=== PATIENT | male | born 1965 | race Caucasian/White ===

== ENCOUNTER → 2020-10-09 11:52 | Outpatient (BNVA) | payer BC, SELFPAY | PROVIDERS: PCP Family Medicine; Visit Provider Surgery | DX: K40.20 Bilateral inguinal hernia, without obstruction or gangrene, not specified as recurrent (principal); Z20.822 Contact with and (suspected) exposure to COVID-19 | CPT/HCPCS: 87635 ==

== ENCOUNTER 2020-10-15 07:52 | Day surgery (SDC) | payer BC, SELFPAY ==
[2020-10-14 09:40] VITALS: BMI 19.3
[2020-10-15] VITALS (7 sets, daily range): BP systolic 114–146; BP diastolic 84–99; PULSE 70–83; RESP 14–20; TEMP 36.2–36.9; O2SAT 98–100
--- NOTE | 2020-10-15 08:08 | W.PM.OPSUD ---
Surgery/Procedure H&P Update DATE OF PROCEDURE: October 15, 2020 DATE H&P PERFORMED: 10/07/20 H&P UPDATE INFORMATION: I have reviewed H&P completed within last 30 days, I have examined patient prior to procedure and No changes to prior documentation PREOP DIAGNOSIS: Bilateral inguinal herni a PLANNED PROCEDURE: Operation Date: 10/15/20 09:25 Proposed Procedures p Laparoscopic Inguinal Hernia Repair [id number] K40.20(Not Applicable) - Ryan Tracey MD
[2020-10-15] MEDS: sodium chloride 0.9% 1,000 ML 30 ML IV (08:34)
--- NOTE | 2020-10-15 09:16 | ANES.PREANE2 ---
Pre-Anesthetic Assessment Pre-Anesthetic Assessment: Height/Weight: Height 1.83 m Weight 64.864 kg Temp Pulse Resp BP Pulse Ox 98.4 F 70 16 146/90 100 10/15/20 08:05 10/15/20 08:05 10/15/20 08:05 10/15/20 08:05 10/15/20 08:05 Preop Diagnosis: Bilateral inguinal herni a Proposed Procedure: Operation Date: 10/15/20 09:25 Proposed Procedures p Laparoscopic Inguinal Hernia Repair 59936 K40.20(Not Applicable) - Ryan Tracey MD Was Beta [place] taken within 24 hours: N/A Was Clonidine taken within 24 hours: N/A Last intake: Intake Last Liquid Date 10/14/20 Last Liquid Time 20:00 Last Solid Date 10/14/20 Last Solid Time 22:00 Social: Social History: No alcohol and No tobacco Exam: Pre-Anes Outpt Exam: alert, oriented x 3, clear to auscultation bilaterally and regular rate & rhythm Airway: Submandibular: WNL Cervical ROM: WNL MP: 2 Dentition: Full History/ROS: No significant history except as noted Anesthetic Plan: ASA status: 1 Anesthesia: General Risk of > 500 ml blood loss (7ml/kg in children): No Meds/Allergies Current Medications: Current Medications Generic Name Dose Route Start Last Admin Trade Name Freq PRN Reason Stop Dose Admin Sodium Chloride 1,000 mls @ 30 ml s/hr 10/15/20 08:15 10/15/20 08:34 Sodium Chloride 0.9% IV 10/16/20 08:14 30 mls/hr .Q24H MARIN Administration PFSH Anesthesia PFSH: Surgical History (Updated 10/15/20 @ 08:09 by Ryan Tracey MD) S/P bilateral inguinal hernia repair (10/15/20) Social History Smoking and tobacco status: never smoked Data Anesthesia Cardiac Studies: No Data to Display
--- NOTE | 2020-10-15 10:49 | PM.OP ---
Operative Report Date of procedure: October 15, 2020 Pre-op Diagnosis: Bilateral reducible inguinal hernia Procedure Done: Laparoscopic extraperitoneal bilateral reducible direct inguinal hernia repair with Surgimax 3D mesh Pathology: none sent Surgeon: Ryan Tracey Anesthesia: General Condition: stable Disposition: PACU Procedure: The patient was taken to the operating room. After IV antibiotic was administered, the abdomen was prepped and draped in a sterile manner. Using a 15 blade, a 1.0 cm transverse incision was made infraumbilically on the right side. Subcutaneous tissue was divided using electrocautery and the anterior rectus sheath divided using an 11 blade. The rectus muscle was retracted laterally and the extraperitoneal space identified. A balloon dissector was insufflated to open the preperitoneal space. A 11 mm port was placed and 15 mm of pneumoperitoneum was created. A 10 mm 30? scope was introduced and the retrorectus space was opened using the camera up to the pubic symphysis and 5 mm ports were placed in the midline, one 2-fingerbreadths above the pubic symphysis and the other midway between these two ports under direct visualization. The pubic symphysis and tubercle was identified and the dissection was then carried laterally where the iliopubic tract was identified. There was no femoral, or obturator hernia but there was a direct hernia which was reduced noted on the right side. The hernia sac was everted and held in place with Securestraps to avoid a seroma, the inferior epigastric artery was identified and dissection was carried posterior to it and laterally, the space was opened up to the level of the umbilicus superior to the anterior superior iliac spine. I then proceeded to dissect out the spermatic cord and the edge of the peritoneum was peeled back, there was no indirect hernia noted. There was no femoral, or obturator hernia but there was a direct hernia which was reduced noted on the left side. The hernia sac was everted and held in place with Securestraps to avoid a seroma, the inferior epigastric artery was identified and dissection was carried posterior to it and laterally, the space was opened up to the level of the umbilicus superior to the anterior superior iliac spine. I then proceeded to dissect out the spermatic cord and the edge of the peritoneum was peeled back, there was no indirect hernia noted. 15 x 10cm Surgimax 3D mesh was rolled and introduced through the 10 mm port and then rolled laterally on the right side and apposed well against the abdominal wall to cover the myopectineal orifice completely and held in place with Securestraps. 15 x 10cm Surgimax 3D mesh was rolled and introduced through the 10 mm port and then rolled laterally on the left side and apposed well against the abdominal wall to cover the myopectineal orifice completely and held in place with Securestraps. 10 Cc of 0.5% Marcaine was infiltrated into the preperitoneal space. The extraperitoneal space was desufflated under direct visualization to ensure no slippage of hernial sac under the mesh. All ports were removed, the anterior rectus fascia at the infraumbilical port closed using figure of eight 0 Vicryl sutures, subcutaneous tissue approximated using 3-0 Vicryl sutures and skin at all three port sites were closed using running subcuticular 4-0 Monocryl sutures and Dermabond. 10 mL of 0.5% Marcaine was infiltrated at the port sites. The patient was stable throughout the procedure.
--- NOTE | 2020-10-15 17:50 | ANE.PACU2 ---
Inpatient post-anesthesia follow up: Airway intact: Yes Vital signs: Temperature 98.0 F Pulse Rate 70 Respiratory Rate 16 Blood Pressure 143/96 Pulse Oximetry 99 Oxygen Delivery Me thod Room Air Oxygen Flow Rate 6 Fraction of Inspir ed Oxygen Hydration adequate: Yes Nausea and vomiting: No Pain level: 2 Mental status: Baseline
== END 2020-10-15 12:50 | disposition home or self-care (01) ==
LOC: OR 07:56
PROVIDERS: PCP Family Medicine; Visit Provider Surgery
PROC: (CPT 49650; principal; 2020-10-15 09:20)
DX: K40.90 Unilateral inguinal hernia, without obstruction or gangrene, not specified as recurrent (principal)
CPT/HCPCS: 49650; C1781; J0690; J1100; J2405; J2704; J2710; J3010; J3490; J7030

== ENCOUNTER → 2021-01-05 08:08 | Outpatient (BNVA) | payer BC, SELFPAY | PROVIDERS: PCP Family Medicine; Visit Provider Surgery | DX: Z20.822 Contact with and (suspected) exposure to COVID-19 (principal) | CPT/HCPCS: 87635 ==

== ENCOUNTER 2021-01-09 06:50 | Day surgery (SDC) | payer BC, SELFPAY ==
[2021-01-07 15:40] VITALS: BMI 19.6
[2021-01-09 07:17] VITALS: BP 133/91; PULSE 85; RESP 18; TEMP 36.6; O2SAT 96
[2021-01-09] MEDS: sodium chloride 0.9% 1,000 ML 30 ML IV (07:32)
--- NOTE | 2021-01-09 07:45 | W.PM.OPSFHP ---
Same Day Surgery H&P Indication for Procedure/HPI DATE OF PROCEDURE: January 09, 2021 CHIEF COMPLAINT/INDICATIONFOR SURGICAL PROCEDURE: screening colonoscopy PREOP DIAGNOSIS: screening colonoscopy PLANNED PROCEDRUE: Operation Date: 01/09/21 08:00 Proposed Procedures p Colonoscopy 33051 Z12.11(Not Applicable) - Ryan Tracey MD Medications/Allergies* Home Medications Medication Instructions Recorded Confirmed Type Multi For Him (no iron) 1 cap PO DAILY 10/14/20 01/09/21 History Allergies/Adverse Reactions Allergy/AdvReac Type Severity Reaction Status Date / Time No Known Allergies Allergy Verified 01/09/21 07:23 Current Medications: Generic Name Dose Route Start Last Admin Trade Name Freq PRN Reason Stop Dose Admin Sodium Chloride 1,000 mls @ 30 mls/hr 01/09/21 07:00 01/09/21 07:32 Sodium Chloride 0.9% IV 01/10/21 06:59 30 mls/hr .Q24H MARIN Administration Pertinent History/Comorbid Conditions* Surgical History (Updated 10/24/20 @ 17:25 by Ryan Tracey MD) S/P bilateral inguinal hernia repair (10/15/20) Pertinent Exam Findings alert, oriented x 3 and regular rate & rhythm Recommendations Surgery/Procedure today Coding Level of Care Code Acute Telephone Instrument Supervisor for Isabella Smith
--- NOTE | 2021-01-09 08:08 | ANES.PREANE2 ---
Pre-Anesthetic Assessment Pre-Anesthetic Assessment: Height/Weight: Height 1.83 m Weight 65.771 kg Temp Pulse Resp BP Pulse Ox 97.8 F 85 18 133/91 96 01/09/21 07:17 01/09/21 07:17 01/09/21 07:17 01/09/21 07:17 01/09/21 07:17 Preop Diagnosis: screening colonoscopy Proposed Procedure: Operation Date: 01/09/21 08:00 Proposed Procedures p Colonoscopy 63822 Z12.11(Not Applicable) - Ryan Tracey MD Was Beta [place] taken within 24 hours: N/A Was Clonidine taken within 24 hours: N/A Last intake: Intake Last Liquid Date 01/08/21 Last Liquid Time 22:30 Last Solid Date 01/07/21 Last Solid Time 18:00 Social: Social History: No alcohol and No tobacco Exam: Pre-Anes Outpt Exam: alert, oriented x 3, clear to auscultation bilaterally and regular rate & rhythm Airway: Submandibular: WNL Cervical ROM: WNL MP: 2 Dentition: Full History/ROS: No significant history except as noted Anesthetic Plan: ASA status: 1 Anesthesia: MAC Risk of > 500 ml blood loss (7ml/kg in children): No Meds/Allergies Current Medications: Current Medications Generic Name Dose Route Start Last Admin Trade Name Freq PRN Reason Stop Dose Admin Sodium Chloride 1,000 mls @ 30 ml s/hr 01/09/21 07:00 01/09/21 07:32 Sodium Chloride 0.9% IV 01/10/21 06:59 30 mls/hr .Q24H MARIN Administration PFSH Anesthesia PFSH: Surgical History (Updated 10/24/20 @ 17:25 by Ryan Tracey MD) S/P bilateral inguinal hernia repair (10/15/20) Data Anesthesia Cardiac Studies: No Data to Display
[2021-01-09 08:30] VITALS: BP 118/81; PULSE 63; RESP 16; TEMP 36.1; O2SAT 100
[2021-01-09 08:42] VITALS: BP 115/80; PULSE 71; RESP 16; O2SAT 100
--- NOTE | 2021-01-09 13:57 | ANE.PACU2 ---
Inpatient post-anesthesia follow up: Airway intact: Yes Vital signs: Temperature 97.0 F Pulse Rate 71 Respiratory Rate 16 Blood Pressure 115/80 Pulse Oximetry 100 Oxygen Delivery Me thod Room Air Oxygen Flow Rate Fraction of Inspir ed Oxygen Hydration adequate: Yes Nausea and vomiting: No Pain level: 1 Mental status: Baseline
== END 2021-01-09 09:04 | disposition home or self-care (01) ==
PROVIDERS: PCP Family Medicine; Visit Provider Surgery
PROC: 0DJD8ZZ Inspection of Lower Intestinal Tract, Via Natural or Artificial Opening Endoscopic (ICD-10-PCS; CPT 45378; principal; 2021-01-09 08:00)
DX: Z12.11 Encounter for screening for malignant neoplasm of colon (principal); D12.5 Benign neoplasm of sigmoid colon
CPT/HCPCS: 45380; 88305; 96360; J2704; J7030

== ENCOUNTER 2022-11-29 02:18 | Emergency (ER) | payer BC, SELFPAY ==
[2022-11-29 02:19] VITALS: BP 143/85; PULSE 59; RESP 18; TEMP 36.7; O2SAT 97; BMI 19.0
--- NOTE | 2022-11-29 02:41 | CTR_ITS ---
PROCEDURE INFORMATION: Exam: CT Abdomen And Pelvis With Contrast Exam date and time: 11/29/2022 2:47 AM Age: 57 years old Clinical indication: Abdominal pain; Localized; Right lower quadrant (rlq); Prior surgery; Surgery date: 6+ months; Surgery type: Bilat inguinal hernia; Patient HX: C/O rlq pain TECHNIQUE: Imaging protocol: Computed tomography of the abdomen and pelvis with contrast. Radiation optimization: All CT scans at this facility use at least one of these dose optimization techniques: automated exposure control; mA and/or kV adjustment per patient size (includes targeted exams where dose is matched to clinical indication); or iterative reconstruction. Contrast material: OMNI 350; Contrast volume: 100 ml; Contrast route: INTRAVENOUS (IV), Tech Notes: IV LEAK WITHOUT PRESSURE LOSS ON MONITOR. APPROXIMATE PT RECIEVED A QUARTER OF 100CC DOSE. REPORTING DATA: Count of CT and Cardiac NM exams in prior 12 months: This patient has received 0 known CTs and 0 known cardiac nuclear medicine studies in the 12 months prior to the current study. COMPARISON: No relevant prior studies available. RADIATION DOSE METRICS: Total DLP (mGy-cm): 340.9 FINDINGS: Lungs: Anterior inferior right middle lobe and lingular bronchiectasis and bibasilar tiny centrilobular opacities. Tiny punctate right middle lobe calcified granuloma. Liver: No acute abnormality. No mass. Gallbladder and bile ducts: No acute abnormality. No calcified stones. No ductal dilation. Pancreas: No acute abnormality. No ductal dilation. Spleen: Punctate splenic calcified granulomas. Adrenal glands: No significant or acute abnormality. Kidneys and ureters: Moderate right hydroureteronephrosis secondary to a 4 x 3 mm calculus at the distal right ureteral orifice. A few small nonobstructing right renal calculi measuring up to 6 mm. Grossly normal left kidney. Stomach and bowel: No evidence of bowel obstruction. A few fluid-filled small bowel loops. Inspissated material within distal ileum. Moderate to large amount of gas and stool throughout the colon. No evidence of diverticulitis. Appendix: Grossly normal nondilated visualized appendix. Intraperitoneal space: No significant fluid collection. No free air. Vasculature: No acute abnormality. No abdominal aortic aneurysm. Lymph nodes: No enlarged lymph nodes. Urinary bladder: Small calculus protrudes into the right bladder base. Mildly thickened nondistended urinary bladder. Reproductive: Mildly prominent prostate which indents the urinary bladder base. Bones/joints: No acute osseous abnormality. Mild thoracolumbar dextroscoliosis. Soft tissues: No significant soft tissue abnormalities. CT/CT abdomen pelvis w con* [id number] IMPRESSION: 1. Moderate right hydroureteronephrosis secondary to a 4 x 3 mm calculus at the distal right ureteral orifice. 2. A few small nonobstructing right renal calculi measuring up to 6 mm. 3. Mildly thickened urinary bladder which may be secondary to nondistention versus cystitis/UTI. 4. Anterior inferior right middle lobe and lingular bronchiectasis and bibasilar tiny centrilobular opacities. Findings are suggestive of old/chronic mycobacterial infection.
--- NOTE | 2022-11-29 02:41 | W.ED.ABDPA2 ---
HPI - Abdominal Pain General: Chief Complaint: Abdominal Pain Stated Complaint: ABD PAIN Time Seen by Provider: 11/29/22 02:20 Source: patient History of Present Illness: 57-year-old male who started having right lower quadrant abdominal pain last night. It seemed to let up a bit, but then came back. He is nauseated. He has not vomited. No diarrhea. Only belly surgery history is a hernia repair. No dysuria. MD elicited complaint: abdominal pain Associated Symptoms: Reports nausea; Denies diarrhea, dysuria, fever(s) and vomiting Review of Systems Const: Denies: fever(s) Card: Denies: chest pain Resp: Denies: dyspnea GI: Reports: abdominal pain and nausea; Denies: vomiting or diarrhea : Denies: difficulty urinating or dysuria Musc: Denies: back pain PFSH ED PFSH: Surgical History S/P bilateral inguinal hernia repair (10/15/20) Status post colonoscopy (01/09/21) sigmoid polyp Physical Exam Const: COMMON NORMALS: no acute distress GENERAL APPEARANCE: cooperative; not ill appearing and not frail appearing HENMT: COMMON NORMALS: normocephalic, atraumatic and Normal external nose present HEAD & SCALP: normocephalic and atraumatic FACE & SINUS: normal facial exam and face symmetric NOSE: Normal external nose present Eye: COMMON NORMALS: Equal, round and reactive pupils present and EOMs intact bilaterally PUPIL: Yes Equal, round and reactive pupils present Neck/C-Spine: GENERAL: Yes trachea midline Chest: CHEST: Yes Symmetrical chest wall rise Resp: COMMON NORMALS: normal respiratory effort, No retractions, No use of accessory muscles and clear to auscultation bilaterally AUSCULTATION: clear to auscultation bilaterally Cardio: COMMON NORMALS: regular rate and regular rhythm RATE: regular rate RHYTHM: regular rhythm GI: COMMON NORMALS: Normal to inspection, nondistended, normoactive bowel sounds present PALPATION: Yes Tenderness to palpation present (GI) Details: RLQ and Yes Rigid due to palpation Extremity: COMMON NORMALS: no pedal edema Neuro: NIKKI COMA SCALE: document GCS findings Nikki coma scale eye opening: Spontaneous Nikki coma scale verbal response: Orientated Nikki coma scale motor response: Obey commands Nikki coma scale total score: 15 SENSORY EXAM: Yes extremities (intact) Psych: COMMON NORMALS: speech normal SPEECH: Yes normal speech Skin: COMMON NORMALS: no rashes or lesions noted GENERAL SKIN EXAM: no rashes or lesions noted Course Vital Signs: Vital signs: Vital Signs Temperature 98.1 F 11/29/22 02:19 Pulse Rate 62 11/29/22 02:52 Respiratory Rate 18 11/29/22 03:04 Blood Pressure 133/83 11/29/22 02:52 Pulse Oximetry 95 11/29/22 02:52 Oxygen Delivery Me thod Room Air 11/29/22 02:52 MDM - Abdominal Pain Medical Decision Making 57-year-old male with right lower quadrant pain. Pain is improved after pain medication here. He is afebrile. Vitals are normal. White blood cell count is 9.5. Creatinine is 1.3. 25-40 red blood cells in the urinalysis without infection. CRP is 3. CT shows a 4 x 3 mm calculus in the distal right ureteral orifice, about to tumble into the bladder. He will be given tamsulosin, pain medication, antiemetic. Will allow home. To return for worsening symptoms. Lab Data 11/29/22 02:27 11/29/22 02:27 Labs/Radiology: Radiology Impressions Abdomen/Pelvis CT 11/29/22 02:41 IMPRESSION: 1. Moderate right hydroureteronephrosis secondary to a 4 x 3 mm calculus at the distal right ureteral orifice. 2. A few small nonobstructing right renal calculi measuring up to 6 mm. 3. Mildly thickened urinary bladder which may be secondary to nondistention versus cystitis/UTI. 4. Anterior inferior right middle lobe and lingular bronchiectasis and bibasilar tiny centrilobular opacities. Findings are suggestive of old/chronic mycobacterial infection. Laboratory Results WBC 9.52 10^3/uL (3.29-11.43) 11/29/22 02:27 RBC 4.27 10^6/uL (3.85-5.65) 11/29/22 02:27 Hgb 13.70 g/dL (11.27-16.99) 11/29/22 02:27 Hct 41.4 % (37-53) 11/29/22 02:27 MCV 97.0 fl (82-101) 11/29/22 02:27 MCH 32.1 pg (27-33) 11/29/22 02: MCHC 33.1 g/dL (30-55) 11/29/22 02:27 RDW 11.9 % (12.1-15.1) L 11/29/22 02:27 Plt Count 176 10^3/cmm (157-399) 11/29/22 02:27 MPV 10.3 fL (7.4-10.4) 11/29/22 02:27 Neut % (Auto) 68.0 % 11/29/22 02:27 Lymph % (Auto) 22.1 % 11/29/22 02:27 [place] % (Auto) 8.6 % 11/29/22 02:27 Eos % (Auto) 0.9 % 11/29/22 02:27 Baso % (Auto) 0.3 % 11/29/22 02:27 Neut # (Auto) 6.47 10^3/uL (1.8-7.7) 11/29/22 02:27 Lymph # (Auto) 2.1 10^3/uL (0.8-4.8) 11/29/22 02:27 [place] # (Auto) 0.8 10^3/uL (0.2-0.9) 11/29/22 02:27 Eos # (Auto) 0.1 10^3/uL (0.0-0.8) 11/29/22 02:27 Baso # (Auto) 0.0 10^3/uL (0.0-0.1) 11/29/22 02:27 Nucleated RBC % (auto) 0 % 11/29/22 02:27 Nucleated RBCs # 0.0 /100WBC 11/29/22 02:27 Sodium 139 mmol/L (136-145) 11/29/22 02:27 Potassium 3.9 mmol/L (3.5-5.1) 11/29/22 02:27 Chloride 99 mmol/L (98-107) 11/29/22 02:27 Carbon Dioxide 29 mmol/L (22-29) 11/29/22 02:27 Anion Gap 14.9 (5-19) 11/29/22 02:27 BUN 32 mg/dL (6-20) H 11/29/22 02:27 Creatinine 1.3 mg/dL (0.7-1.2) H 11/29/22 02:27 GFR Calculation 56.5 mL/min (90-130) L 11/29/22 02:27 Glucose 136 mg/dL (65-115) H 11/29/22 02:27 Calculated Osmolality 297 mOsm/kg (285-295) H 11/29/22 02:27 Calcium 9.5 mg/dL (8.5-10.5) 11/29/22 02:27 Total Bilirubin 0.5 mg/dL (0.15-1.2) 11/29/22 02:27 AST 22 U/L (0-40) 11/29/22 02:27 ALT 18 U/L (0-41) 11/29/22 02:27 Alkaline Phosphatase 77 U/L (40-130) 11/29/22 02:27 C-Reactive Protein 3.0 mg/L (0.0-4.9) 11/29/22 02:27 Total Protein 7.2 g/dL (6.6-8.7) 11/29/22 02:27 Albumin 4.1 g/dL (3.5-5.2) 11/29/22 02:27 Globulin 3.1 g/dL (1.3-4.6) 11/29/22 02:27 Lipase 27 U/L (13-60) 11/29/22 02:27 Urine Color Yellow (Yellow) 11/29/22 02:41 Urine Appearance Clear (CLEAR) 11/29/22 02:41 Urine pH 7 (5-7) 11/29/22 02:41 Ur Specific [place] 1.010 (1.005-1.030) 11/29/22 02:41 Urine Protein Neg (Negative) 11/29/22 02:41 Urine Glucose (UA) Norm (Normal) 11/29/22 02:41 Urine Ketones 1+ (Negative) H 11/29/22 02:41 Urine Blood 3+ (Negative) H 11/29/22 02:41 Urine Nitrate Negative (Negative) 11/29/22 02:41 Urine Bilirubin Neg (Negative) 11/29/22 02:41 Urine Urobilinogen Neg mg/dL (Negative) 11/29/22 02:41 Ur Leukocyte Esterase Negative (Negative) 11/29/22 02:41 Urine RBC 25-40 /hpf (0-2) H 11/29/22 02:41 Urine WBC Rare /hpf (0-5) 11/29/22 02:41 Ur Squamous Epith Cells None /hpf (0-5) 11/29/22 02:41 Amorphous Sediment Not Reportable 11/29/22 02:41 Urine Bacteria None /hpf (NONE) 11/29/22 02:41 All radiology interpretation(s) finalized by discharge Discharge Plan Discharge Patient Disposition: Home Clinical Impression: Ureterolithiasis Condition: Stable Prescriptions: New ondansetron 4 mg film 4 mg PO DAILY PRN (Reason: nausea and vomiting) Qty: 10 0RF Percocet 7.5-325 mg tablet 1 tab PO Q6H PRN (Reason: pain) Qty: 10 0RF tamsulosin 0.4 mg capsule 0.4 mg PO DAILY Qty: 10 0RF No Action Multi For Him (no iron) 400-40 mcg Capsule 1 cap PO DAILY Discharge Orders: Discharge ED (Routine); Ordered 11/29/22 Ordered By: Frederick Arreguin Referrals: Alexy Matthew [Primary Care Provider] - Patient Instructions: Kidney Stones (ED), Opioid Safety, Pain Management Activity Restrictions/Additional Instructions: Medication as directed. Return for fever greater than 100, worsening pain despite treatment, vomiting liquids or medications, other concerning symptoms. Coding Level of Care Code ED Apprentice/Lineman for Isabella Smith
[2022-11-29 02:46] LABS: Basophils % 0.3 %; Eosinophils # 0.1 10^3/uL (0.0-0.8); Eosinophils % 0.9 %; Hematocrit 41.4 % (37-53); Lymphocytes # 2.1 10^3/uL (0.8-4.8); Lymphocytes % 22.1 %; Mean Corpuscular HGB Conc 33.1 g/dL (30-55); Mean Corpuscular Hemoglobin 32.1 pg (27-33); Mean Platelet Volume 10.3 fL (7.4-10.4); Monocytes # 0.8 10^3/uL (0.2-0.9); Monocytes % 8.6 %; Neutrophils # 6.47 10^3/uL (1.8-7.7); Nucleated Red Blood Cells % 0 %; Platelet Count 176 10^3/cmm (157-399); Red Blood Count 4.27 10^6/uL (3.85-5.65); Red Cell Distribution Width 11.9 % (12.1-15.1); White Blood Count 9.52 10^3/uL (3.29-11.43)
[2022-11-29] MEDS: iohexol 350 mg/mL 500 mL Btl (per mL) IV (02:49)
[2022-11-29 02:52] VITALS: BP 133/83; PULSE 62; RESP 17; O2SAT 95
[2022-11-29 02:57] LABS: Bilirubin Urine Neg (Negative); Blood Urine 3+ (Negative); Glucose Urine UA Norm (Normal); Ketones Urine 1+ (Negative); Leukocyte Esterase Urine Negative (Negative); Nitrate Urine Negative (Negative); Protein Urine Neg (Negative); Urine Appearance Clear (CLEAR); Urine Color Yellow (Yellow); Urobilinogen Urine Neg (Negative); pH Urine 7 (5-7)
[2022-11-29 02:58] LABS: Add Urine Microscopic? YES
[2022-11-29 03:00] LABS: Alanine Aminotransferase 18 U/L (0-41); Albumin Level 4.1 g/dL (3.5-5.2); Alkaline Phosphatase 77 U/L (40-130); Anion Gap 14.9 (5-19); Aspartate Amino Transferase 22 U/L (0-40); Blood Urea Nitrogen 32 mg/dL (6-20); Calcium 9.5 mg/dL (8.5-10.5); Carbon Dioxide 29 mmol/L (22-29); Chloride 99 mmol/L (98-107); Globulin 3.1 g/dL (1.3-4.6); Glomerular Filtration Rate 56.5 mL/min (90-130); Glucose 136 mg/dL (65-115); Lipase 27 U/L (13-60); Osmolality Calculated 297 mOsm/kg (285-295); Potassium 3.9 mmol/L (3.5-5.1); Sodium 139 mmol/L (136-145); Total Bilirubin 0.5 mg/dL (0.15-1.2); Total Protein 7.2 g/dL (6.6-8.7)
[2022-11-29 03:04] VITALS: RESP 18
[2022-11-29 03:04] LABS: RBC Urine 25-40 /hpf (0-2); WBC Urine RARE /hpf (0-5)
[2022-11-29] MEDS: morphine 4 mg/mL SDV 1 mL IVP (03:04)
[2022-11-29] MEDS: sodium chloride 0.9% 1,000 ML 999 ML IV (03:04)
[2022-11-29 03:05] LABS: Add Urine Culture? Yes
[2022-11-29] MEDS: ketorolac 30 mg/mL INJ 15 MG IVP (04:41)
[2022-11-29 04:47] VITALS: BP 146/87; PULSE 60; RESP 16; O2SAT 98
== END 2022-11-29 04:50 | disposition home or self-care (01) ==
PROVIDERS: Emergency Provider Emergency Medicine; PCP Family Medicine
DX: N13.2 Hydronephrosis with renal and ureteral calculous obstruction (principal)
CPT/HCPCS: 36415; 74177; 80053; 81001; 83690; 85025; 86140; 87086; 96361; 96374; 96375; 99285; J1885; J2270; J7030; Q9967